=== PATIENT | female | born 1960 | race Caucasian/White ===

== ENCOUNTER 2022-06-29 08:44 | Emergency (ER) | payer BC ==
[~2022-06-29] VITALS: Ht 173 cm; Wt 56.0 kg
[2022-06-29] MEDS ORDERED: ADENOSINE 6 MG/2 ML (ADENOCARD) VIAL IV ONE ×2 (09:04→10:00)
[2022-06-29] MEDS ORDERED: NS IV 1000 ML 1,000 ML ONE (09:11)
--- NOTE | 2022-06-29 09:19 | ED Cardiac General ---
History of Present Illness General Chief Complaint: Chest Pain Stated Complaint: VERTIGO | Source: patient, family (daughter) Exam Limitations: no limitations History of Present Illness Date Seen by Provider: Jun 29, 2022 Time Seen by Provider: 09:08 Initial Comments 61-year-old female presents to the emergency department today for chest pain and generally feeling unwell. She states initially the symptoms were omeprazole for about 3 days. She later tells me is probably been more like 5 days. She has no cardiac history. She also endorses some dizziness, lightheadedness. When she gets up after the teletypesetter monitor she is in SVT with a rate in the 220-2 40 range. She denies any recent illnesses. No cardiac history. She does not use caffeine energy drinks or workout supplements, herbal supplements. All other systems reviewed and negative except documented per HPI. Voice recognition software was used to help create this chart Allergies and Home Medications Allergies Coded Allergies: No Known Drug Allergies (Unverified , 06/29/22) Patient Home Medication List Home Medication List Reviewed: Yes Review of Systems Review of Systems Constitutional: see HPI Past Nsgritu-Sdlxea-Rgcbxc Hx Patient Social History Tobacco Use?: No Use of E-Cig and/or Vaping dev: No Substance use?: No Alcohol Use?: No Family Medical History Reviewed Nursing Family Hx No Pertinent Family Hx Physical Exam Vital Signs Vital Signs - First Documented 06/29/22 09:00 Pulse 265 Resp 24 B/P (MAP) 167/125 (139) Pulse Ox 98 O2 Delivery Room Air Capillary Refill : Height, Weight, BMI Height: '" Weight: lbs. oz. kg; BMI Method: General Appearance: Moderate Distress HEENT: Normal ENT Inspection, Pharynx Normal, Other (Left ear canal appears inflamed. TM is normal.) Neck: Normal Inspection, Non Tender, Supple Respiratory: Chest Non Tender, Lungs Clear, Normal Breath Sounds, No Accessory Muscle Use Cardiovascular: No Murmur, Tachycardia (Extreme tachycardia, SVT) Gastrointestinal: Normal Bowel Sounds, No Organomegaly, Non Tender, Soft Extremity: Normal Capillary Refill, Normal Inspection, Non Tender Neurologic/Psychiatric: Alert, Oriented x3, No Motor/Sensory Deficits Skin: Normal Color, Warm/Dry Progress/Results/Core Measures Results/Orders Lab Results Laboratory Tests Test 06/29/22 09:00 Range/Units White Blood Count 9.4 4.3-11.0 10^3/uL Red Blood Count 4.60 3.80-5.11 10^6/uL Hemoglobin 15.3 11.5-16.0 g/dL Hematocrit 44 35-52 % Mean Corpuscular Volume 97 80-99 fL Mean Corpuscular Hemoglobin 33 25-34 pg Mean Corpuscular Hemoglobin Concent 35 32-36 g/dL Red Cell Distribution Width 12.0 10.0-14.5 % Platelet Count 297 130-400 10^3/uL Mean Platelet Volume 10.9 9.0-12.2 fL Immature Granulocyte % (Auto) 0 % Neutrophils (%) (Auto) 62 42-75 % Lymphocytes (%) (Auto) 31 12-44 % Monocytes (%) (Auto) 5 0-12 % Eosinophils (%) (Auto) 1 0-10 % Basophils (%) (Auto) 0 0-10 % Neutrophils # (Auto) 5.8 1.8-7.8 10^3/uL Lymphocytes # (Auto) 2.9 1.0-4.0 10^3/uL Monocytes # (Auto) 0.5 0.0-1.0 10^3/uL Eosinophils # (Auto) 0.1 0.0-0.3 10^3/uL Basophils # (Auto) 0.0 0.0-0.1 10^3/uL Immature Granulocyte # (Auto) 0.0 0.0-0.1 10^3/uL Sodium Level 142 135-145 MMOL/L Potassium Level 3.6 3.6-5.0 MMOL/L Chloride Level 104 98-107 MMOL/L Carbon Dioxide Level 23 21-32 MMOL/L Anion Gap 15 H 5-14 MMOL/L Blood Urea Nitrogen 16 7-18 MG/DL Creatinine 0.78 0.60-1.30 MG/DL Estimat Glomerular Filtration Rate 87 BUN/Creatinine Ratio 21 Glucose Level 98 70-105 MG/DL Calcium Level 10.2 H 8.5-10.1 MG/DL Magnesium Level 2.0 1.6-2.4 MG/DL Troponin I < 0.028 <0.028 NG/ML Thyroid Stimulating Hormone (TSH) 1.90 0.35-4.94 UIU/ML My Orders Orders - GREGORIO LUIS DO Ekg Tracing (06/29/22 08:57) Adenosine Injection (Adenocard Injection (4/12/23 09:04) Magnesium (06/29/22 09:12) Thyroid Stimulating Hormone (06/29/22 09:12) Basic Metabolic Panel (06/29/22 09:12) Cbc With Automated Diff (06/29/22 09:12) Troponin I [place] (06/29/22 09:13) Ns Iv 1000 Ml (Sodium Chloride 0.9%) (06/29/22 09:11) Adenosine Injection (Adenocard Injection (06/29/22 10:00) Ed Iv/Invasive Line Start (06/29/22 09:48) Ns Iv 1000 Ml (Sodium Chloride 0.9%) (06/29/22 10:00) Ekg Tracing (06/29/22 09:48) Medications Given in ED Current Medications Medications Dose Ordered Sig/De Route Start Time Stop Time Status Last Admin Dose Admin Adenosine 6 mg STK-MED ONCE IV 06/29/22 09:04 06/29/22 09:07 DC 06/29/22 09:07 6 MG Sodium Chloride 1,000 ml @ ud STK-MED ONCE .ROUTE 06/29/22 09:11 06/29/22 09:16 DC 06/29/22 09:20 1,000 MLS/HR Vital Signs/I&O 06/29/22 09:00 Pulse 265 Resp 24 B/P (MAP) 167/125 (139) Pulse Ox 98 O2 Delivery Room Air Comment Independent interpretation of the EKG initially shows supraventricular tachycardia with a rate of [address] depressions. No STEMI. Other interpretation is difficult secondary to the fast rate. Normal axis EKG : Comment Repeat EKG after chemical cardioversion with adenosine shows sinus tachycardia of 117 beats per minute. Normal intervals. Normal axis. There are some slight ST depressions in the inferior leads II, III and aVF. No other ST or T wave abnormalities. No ectopy. No STEMI. Critical Care Note Critical Care Total Time (minutes) 40 Departure Communication (Admissions) Patient initially with significant dizziness. Heart rate initially in the mid 200s with stable blood pressures. IV access established immediately and after initial EKG she was placed on the ZOLL and given 6 mg adenosine. She was sub sequently cardioverted to sinus rhythm. Initially tachycardia and subsequently normal sinus rhythm. She has no recent illnesses. Check electrolytes, troponin and thyroid all of which were normal. She is not anemic. She has no history of SVT. I spoke with Dr. Loving has no further orders at this time. He request we fax the narrow complex tachycardia EKG to his office which has been completed. He request she stop by his office tomorrow so that he can evaluate her. She states understanding and is comfortable agreeable discharge from the ER at this time Impression Primary Impression: Supraventricular tachycardia Disposition: 01 HOME, SELF-CARE Condition: Stable Departure-Patient Inst. Referrals: EUGENE LOVING MD NO,LOCAL PHYSICIAN (PCP) Primary Care Physician Patient Instructions: Supraventricular Tachycardia (SVT) Add. Discharge Instructions: You are seen in the emergency department today for dizziness. You were in SVT, a fast heart rhythm. As discussed your electrolytes, kidney function and blood counts are normal as is your thyroid. We gave you a medicine that converted your heart back into a normal rhythm and you have been there since that time. Return to the emergency department immediately should your symptoms recur. I spoke with Dr. Loving who recommends you stop by his office tomorrow. We have faxed him the electrical tracing of your heart that should be available to him. Follow-up with your primary doctor for any nonemergent needs. All discharge instructions reviewed with patient and/or family. Voiced understanding. GREGORIO LUIS DO Jun 29, 2022 09:18
[2022-06-29 09:20] LABS: BASOPHILS % (AUTO) 0 % (0-10); EOSINOPHILS # (AUTO) 0.1 10^3/uL (0.0-0.3); EOSINOPHILS % (AUTO) 1 % (0-10); HEMATOCRIT 44 % (35-52); HEMOGLOBIN 15.3 g/dL (11.5-16.0); LYMPHOCYTES # (AUTO) 2.9 10^3/uL (1.0-4.0); LYMPHOCYTES % (AUTO) 31 % (12-44); MEAN CORPUSCULAR HEMOGLOBIN 33 pg (25-34); MEAN CORPUSCULAR HGB CONC 35 g/dL (32-36); MEAN CORPUSCULAR VOLUME 97 fL (80-99); MEAN PLATELET VOLUME 10.9 fL (9.0-12.2); MONOCYTES # (AUTO) 0.5 10^3/uL (0.0-1.0); MONOCYTES % (AUTO) 5 % (0-12); NEUTROPHILS # (AUTO) 5.8 10^3/uL (1.8-7.8); NEUTROPHILS % (AUTO) 62 % (42-75); PLATELET COUNT 297 10^3/uL (130-400); WHITE BLOOD COUNT 9.4 10^3/uL (4.3-11.0)
[2022-06-29 09:30] LABS: CHLORIDE 104 MMOL/L (98-107); POTASSIUM 3.6 MMOL/L (3.6-5.0); SODIUM 142 MMOL/L (135-145)
[2022-06-29 09:31] LABS: CALCIUM 10.2 MG/DL (8.5-10.1); GLUCOSE 98 MG/DL (70-105)
[2022-06-29 09:33] LABS: CARBON DIOXIDE 23 MMOL/L (21-32)
[2022-06-29 09:35] LABS: CREATININE SERUM 0.78 MG/DL (0.60-1.30); GFR ESTIMATED 87
[2022-06-29 09:36] LABS: BUN/CREATININE RATIO 21
[2022-06-29] MEDS ORDERED: NS IV 1000 ML 1,000 ML IV SCH (10:00)
[2022-06-29 11:02] VITALS: BP 147/91
== END 2022-06-29 11:02 | disposition home or self-care (01) ==
LOC: ER 08:48
DX: I47.1 Supraventricular tachycardia (principal); Z28.311 Partially vaccinated for COVID-19
CPT/HCPCS: 36415; 80048; 83735; 84443; 84484; 85025; 93005

== ENCOUNTER 2022-07-07 12:39 | Outpatient (CLI) | payer BC ==
[~2022-07-07] VITALS: Ht 172.7 cm; Wt 55.0 kg
[2022-07-07] MEDS ORDERED: TEMA30CA PO (15:24)
[2022-07-07] MEDS ORDERED: RT-ALBUINH INH (15:24)
[2022-07-07] MEDS ORDERED: CYCL10TA25 PO (15:24)
[2022-07-07] MEDS ORDERED: MTP25TSR PO (15:24)
== END 2022-07-07 15:29 | disposition home or self-care (01) ==
LOC: PREOP 12:39
PROVIDERS: ATTEND Internal Medicine
DX: Z01.818 Encounter for other preprocedural examination (principal)

== ENCOUNTER → 2022-07-12 | Outpatient (CLI) | payer BC ==
[~2022-07-12] MED LIST: CYCL10TA25 PO; ESOM40CA52 PO; MTP25TSR PO; RT-ALBUINH INH; TEMA30CA PO
== END ==
LOC: CARD 14:30
PROVIDERS: ATTEND Internal Medicine Cardiovascular Disease
DX: I10 Essential (primary) hypertension (principal); I25.10 Atherosclerotic heart disease of native coronary artery without angina pectoris
CPT/HCPCS: 93306

== ENCOUNTER 2022-07-15 09:07 | Day surgery (SDC) | payer BC ==
--- NOTE | 2022-07-08 14:26 | HISTORY AND PHYSICAL ---
DATE OF SERVICE: 07/15/2022 EGD HISTORY AND PHYSICAL HISTORY OF PRESENT ILLNESS: The patient is a 61-year-old white female seen for initial office evaluation on the 06 of July. She reports that over the past 3 or 4 months, she has lost at least 20 pounds with intermittent nausea and admits to feeling anxious good part of the time. She denies there is any increase in stress. Her appetite has been poor. She reports some intermittent epigastric discomfort. Denies dysphagia. Has noted no melena or bright red blood per rectum. She felt significantly worse, beginning about 2 weeks ago with lightheadedness. She presented to the emergency room on the where it is noted she was in PSVT with a heart rate of 259. She was given adenosine, which converted her and she saw Dr. Loving the following day after ECG normalized and her electronic medical record was reviewed. Her CBC was normal. Basic metabolic panel was unremarkable as well with a magnesium level of 2 and a TSH of 1.9. She had had no previous history of PSVT. PAST MEDICAL HISTORY: Significant for hyperlipidemia and hypertension. She reports a history of mild asthma, aggravated by ongoing smoking and that she would like to quit smoking history. MEDICATIONS ON ADMISSION: Include albuterol 2 puffs every 4-6 hours, cyclobenzaprine that she takes for neck pain with known cervical stenosis for which she is followed by Dr. Elder, but is being conservatively managed for reported cervical stenosis. She takes 30 mg of temazepam at bedtime for insomnia and since her diagnosis of PSVT, has been taking Toprol-XL through Dr. Loving is office 25 mg daily. She reports past history of depression. She has weaned herself off of medication. Latest medication was Cymbalta that she has been off for about one and a half months. She has been on Paxil in the past, but had problems with this medication. PAST SURGICAL HISTORY: She has had tonsillectomy and adenoidectomy as a child, has had 1 followed by tubal ligation, has had cholecystectomy and appendectomy in the past and has had arthroscopic procedure to the right knee. FAMILY HISTORY: She does not know anything about her father. FAMILY HISTORY: Mother is living with history of breast cancer and bladder cancer in her late 70s with Alzheimer's dementia. She has two sisters, one of complications of lupus or vasculitis. She is not aware of any family history for GI tract malignancy. PHYSICAL EXAMINATION: GENERAL: Reveals an anxious, thin white female, in no acute distress. VITAL SIGNS: Blood pressure 118/62, heart rate 70 and regular, weight 121.8 pounds, 5 feet 8 inches tall. HEENT: Unremarkable. NECK: Revealed no JVD, adenopathy, bruits or thyroid abnormality to palpation. CHEST: Clear to auscultation. CARDIOVASCULAR: Reveals regular rate and rhythm without murmur, S3, or S4. ABDOMEN: Soft, supple. Mild epigastric discomfort to palpation without rebound or guarding. No mass or organomegaly noted. Bowel sounds positive, no bruits appreciated. EXTREMITIES: Reveal no cyanosis, clubbing or edema. SKIN: Evaluation reveals no suspicious nevi. ASSESSMENT AND PLAN: 1. For further investigation of nausea, weight loss and epigastric discomfort,the patient is being set up for an EGD evaluation. 2. Tobaccoism. Currently, the patient is down to 2 cigarettes per day. We will likely discuss initiation of Wellbutrin-XL after EGD evaluation and I recommended smoking cessation counseling. 3. Recent diagnosis of PSVT, currently tolerating 25 mg of Toprol-XL and following with Dr. Loving. 4. Major depressive disorder with prominent anxiety features. I will likely initiate Wellbutrin due to tobaccoism post-EGD with 6 weeks followup. Job ID: [id number] DocumentID: [id number] Dictated Date: 07/08/2022 14:06:28 Attacher Date: 07/08/2022 14:24:00 Dictated By: LEN MENDIOLA MD
[~2022-07-15] VITALS: Ht 173 cm; Wt 55.0 kg
[~2022-07-15 09:07] MED LIST changes: -ESOM40CA52 PO; +LACTATED RINGERS 1,000 ML IV STA
[2022-07-15] MEDS ORDERED: HURRICAINE EXT TUBE (BENZOCAINE) XX PRN (09:15)
[2022-07-15 09:30] VITALS: BP 132/79
--- NOTE | 2022-07-15 10:08 | Pre-Op Note & Conscious Sedat ---
Pre-Operative Progress Note Date H&P Reviewed: Jul 15, 2022 Time H&P Reviewed: 10:07 History & Physical: H&P Reviewed, Patient Examed, No changes noted Pre-Op Diagnosis: nausea wieght loss Moderate Sedation PreProcedure ASA Score 2 Airway Lungs Heart ASA score ASA 1: a normal healthy patient ASA 2: a patient with a mild systemic disease (mid diabetes, controlled hypertension, obesity ASA 3: a patient with a severe systemic disease that limits activity (angina, COPD, prior Myocardial infarction) ASA 4: a patient with an incapacitating disease that is a constant threat to life (CHF, renal failure) ASA 5: a moribund patient not expected to survive 24 hrs. (ruptured aneurysm) ASA 6: a declared brain- patient whose organs are being harvested. For emergent operations, add the letter E after the classification Mallampati Classification Grade 1 Sedation Plan Analgesia, Amnesia, Plan communicated to team members, Discussed options with patient/fam, Discussed risks with patient/fam The patient is an appropriate candidate to undergo the planned procedure, sedation, and anesthesia. The patient immediately re-assessed prior to indication. LEN MENDIOLA MD Jul 15, 2022 10:08
[2022-07-15] MEDS ORDERED: PROPOFOL INJECTION 50 ML IV ONE (10:32)
[2022-07-15] MEDS ORDERED: MIDAZOLAM 2 MG/2 ML (VERSED) VIAL ONE (10:32)
[2022-07-15 10:50] VITALS: BP 85/48
[2022-07-15 10:55] VITALS: BP 97/57
[2022-07-15 11:00] VITALS: BP 87/53
[2022-07-15 11:35] VITALS: BP 88/53
[2022-07-15] MEDS ORDERED: ESOM40CA52 PO (11:56)
--- NOTE | 2022-07-15 12:04 | Anesthesia-General Post-Op ---
MAC Patient Condition Mental Status/LOC: Same as Preop Cardiovascular: Satisfactory Nausea/Vomiting: Absent Respiratory: Satisfactory Pain: Controlled Complications: Absent Post Op Complications Complications None Follow Up Care/Instructions Patient Instructions None needed. Anesthesiology Discharge Order Discharge Order Patient is doing well, no complaints, stable vital signs, no apparent adverse anesthesia problems. No complications reported per nursing. MARCI SHAHID CRNA Jul 15, 2022 12:04
--- NOTE | 2022-08-04 15:25 | Progress Note-Post Operative ---
Post-Procedure Note Physician (s)/Hospital Coder (s) Physician LEN MENDIOLA MD Pre-Procedure Diagnosis Pre-Procedure Diagnosis: nausea wieght loss Post-Procedure Diagnosis Post-operative diagnosis: The endoscope was inserted into the oral cavity and under direct visualization the esophagus is intubated. The endoscope was passed down the esophagus to stomach and the second portion of the duodenum. A careful inspection was made as the endoscope was withdrawn. Findings the posterior pharynx epiglottis arytenoid aperture and true and false vocal folds were unremarkable to gross inspection. The proximal and midesophagus was unremarkable. Small hiatal hernia is noted approximately 1 cm in size there is some mild erythema noted at the Z-line with a few whitish plaques no nodularity was noted. Several erosions were noted without overt evidence for ulceration. Biopsies were obtained and submitted for histopathology as well as fungal evaluation. The cardia and fundus of the stomach were unremarkable there is mild antral erythema presents a biopsy was obtained and submitted for Helicobacter and histopathology. A/P 1. Small hiatal hernias presents with several small erosions and some whitish plaques which were biopsied and did confirm fungal elements likely Aleksandra. The patient does not have known diabetes we will be repeating blood work including HIV status. Abnormalities were can find to the GE junction and not present elsewhere in the esophagus. We did initiate Diflucan 200 mg daily patient will be following up for additional laboratory evaluation as noted above. Biopsies for Helicobacter were obtained and returned revealing no evidence for Helicobacter significant gastritis. LEN MENDIOLA MD August 04, 2022 15:24
== END 2022-07-15 11:45 | disposition home or self-care (01) ==
LOC: ENDO 09:07
PROVIDERS: ATTEND Internal Medicine
DX: K20.90 Esophagitis, unspecified without bleeding (principal); B37.81 Candidal esophagitis; K31.7 Polyp of stomach and duodenum; K31.89 Other diseases of stomach and duodenum; R63.4 Abnormal weight loss; K44.9 Diaphragmatic hernia without obstruction or gangrene; I47.1 Supraventricular tachycardia; F32.9 Major depressive disorder, single episode, unspecified; F41.9 Anxiety disorder, unspecified; F17.210 Nicotine dependence, cigarettes, uncomplicated; Z79.899 Other long term (current) drug therapy
CPT/HCPCS: 88305; 88312

== ENCOUNTER → 2022-07-15 | Outpatient (CLI) | payer BC ==
[2022-07-15 09:20] LABS: ALBUMIN 4.1 GM/DL (3.2-4.5); POTASSIUM 4.7 MMOL/L (3.6-5.0)
[2022-07-15 09:21] LABS: CALCIUM 9.5 MG/DL (8.5-10.1)
[2022-07-15 09:23] LABS: TOTAL PROTEIN 7.1 GM/DL (6.4-8.2)
[2022-07-15 09:25] LABS: BILIRUBIN,TOTAL 0.6 MG/DL (0.1-1.0)
[2022-07-15 09:26] LABS: CREATININE SERUM 0.71 MG/DL (0.60-1.30)
== END ==
LOC: LAB 08:51
PROVIDERS: ATTEND Internal Medicine Cardiovascular Disease
DX: I10 Essential (primary) hypertension (principal); I25.10 Atherosclerotic heart disease of native coronary artery without angina pectoris; E78.2 Mixed hyperlipidemia; I47.1 Supraventricular tachycardia; M48.02 Spinal stenosis, cervical region
CPT/HCPCS: 36415; 80053; 80061

== ENCOUNTER → 2022-07-20 | Outpatient (CLI) | payer BC ==
[~2022-07-20] MED LIST changes: +CATHETER FLUSH 10 ML SYR IVP PRN; +ESOM40CA52 PO; -LACTATED RINGERS 1,000 ML IV STA
[2022-07-20 13:44] VITALS: BP 124/79
--- NOTE | 2022-07-20 16:28 | Cardiology Stress Test Report ---
Stress Test Report Date of Procedure/Referring: Date of Procedure: July 20, 2022 PCP No,Local Physician Admitting Physician Admitting Physician: Attending Physician: Martin Loving MD Indications: palp Baseline Blood Pressure: Blood Pressure Systolic: 124 Blood Pressure Diastolic: 79 Vital Signs Date Time Temp Pulse Resp B/P (MAP) Pulse Ox O2 Delivery O2 Flow Rate FiO2 07/20/22 13:44 100 16 124/79 (94) 97 Room Air Baseline Vital Signs Vital Signs Date Time Temp Pulse Resp B/P (MAP) Pulse Ox O2 Delivery O2 Flow Rate FiO2 07/20/22 13:44 100 16 124/79 (94) 97 Room Air Baseline EKG: Baseline EKG: NSR Summary: After explaining the procedure and details to the patient, she signed the consent and was brought to the stress nuclear laboratory. Patient exercised on standard Jamison protocol, EKG, heart rate and blood pressure were monitored continuously, resting and stress doses of radio tracer were injected, imaging was acquired and reviewed in the short axis, horizontal long axis and vertical long axis views Patient was able to exercise for a total of 3 minutes on Jamison protocol, METs 4.6 Maximum heart rate 138 Maximum blood pressure 173/82 Stress EKG, Minimal nondiagnostic changes Recovery EKG, Return to baseline TID: 1.11 SSS: 0 SDS: 0 EF: 61 Conclusion: Poor exercise tolerance for a total of 3 minutes on standard Jamison protocol achieving 86% of maximal expected heart rate Nondiagnostic EKG changes with exercise return to baseline during recovery No ischemia or infarction noted on SPECT images Normal left ventricular size, ejection fraction 61% Copy Copies To 1: LEN MENDIOLA MD, BASHAR J MD July 20, 2022 16:28
== END ==
LOC: CARD 12:45
PROVIDERS: ATTEND Internal Medicine Cardiovascular Disease
DX: R00.2 Palpitations (principal)
CPT/HCPCS: 78452; 93017; A9502